=== PATIENT | female | born 1995 | race Caucasian/White ===

== ENCOUNTER 2022-10-12 15:16 | Inpatient (IN) | payer MEDICAID, SELFPAY ==
[2022-10-12] VITALS (15 sets, daily range): BP systolic 116–146; BP diastolic 61–85; PULSE 63–101; RESP 15–20; TEMP 37.1; BMI 30.2
[2022-10-12 16:15] LABS: Glucose Urine UA Norm (Normal); Ketones Urine 1+ (Negative); Protein Urine Neg (Negative); Urine Appearance Hazy (CLEAR); Urine Color Yellow (Yellow); pH Urine 6 (5-7)
[2022-10-12 16:16] LABS: Bacteria Urine 4+ /hpf; Bilirubin Urine Neg (Negative); Blood Urine Neg (Negative); Leukocyte Esterase Urine Negative (Negative); Mucus Urine 1+ /hpf; Nitrate Urine Negative (Negative); RBC Urine 0-4 /hpf (0-2); Squamous Epithelial Cell Urine 0-4 /hpf (0-5); Urobilinogen Urine Norm (Negative); WBC Urine 0-4 /hpf (0-5)
[2022-10-12 16:17] LABS: Add Urine Culture? Yes
[2022-10-12 16:18] LABS: Amphetamines Screen Urine Negative (Negative); Barbiturates Screen Urine Negative (Negative); Benzodiazepines Screen Urine Negative (Negative); Cocaine Screen Urine Negative (Negative); Opiate Screen Urine Negative (Negative); PCP Screen Urine Negative (Negative); THC Screen Urine Negative (Negative)
[2022-10-12 18:24] LABS: Basophils % 0.2 %; Eosinophils % 0.4 %; Hematocrit 37.7 % (37.0-47.0); Hemoglobin 11.9 g/dL (11.5-15.3); Lymphocytes % 19.7 %; Mean Corpuscular HGB Conc 31.6 g/dL (30.0-36.0); Mean Corpuscular Hemoglobin 25.2 pg (28.0-34.0); Mean Corpuscular Volume 79.9 fl (81-99); Mean Platelet Volume 9.6 fL (7.4-10.4); Monocytes # 0.7 10^3/uL (0.2-0.9); Monocytes % 6.6 %; Neutrophils # 7.53 10^3/uL (1.8-7.7); Neutrophils % 72.8 %; Nucleated Red Blood Cells % 0 %; Platelet Count 289 10^3/cmm (130-400); Red Blood Count 4.72 10^6/uL (4.1-5.3); Red Cell Distribution Width 13.9 % (12.1-15.1); White Blood Count 10.3 10^3/uL (4.0-10.0)
[2022-10-12] MEDS: dextrose 5%-lactated ringers 1,000 ML 125 ML IV (18:40)
--- NOTE | 2022-10-12 19:14 | PM.OPHPUD ---
Labor & Delivery H&P Update Date of Procedure: October 12, 2022 Date H&P Performed: 10/11/22 H&P update information: I have reviewed H&P completed within last 30 days, I have examined patient prior to procedure and Changes to prior documentation as noted here Changes to previous documentation: The patient progressed from 2 cm to 5 cm cervical dilation and was admitted in active labor. Admission Diagnosis: iup@ 40w2d Related Problem List Diagnoses (1) Supervision of other normal :
--- NOTE | 2022-10-12 19:16 | PM.DELIVERY ---
Delivery Note: Date of delivery: October 12, 2022 Pre-delivery diagnoses: iup@ 40w3d Post-delivery diagnoses: same-delivered Procedure: Delivering Physician: Moise Estimated blood loss (mL): 20 Findings: term male in the MATTHEW presentation Pre-Delivery Course: iup@ 40w3d who presented in active labor. She had fast cervical dilation and went from 2 cm to 5 cm in 2 hours, then to 8 cm in 30 minutes. Delivery: The patient had complete cervical dilation and began to push. The head delivered in the MATTHEW position over an intact perineum under no anesthesia. The nose and mouth were bulb suctioned. The shoulders and body delivered atraumatically. The baby was placed onto the mother's abdomen. The cord was clamped and cut. The placenta delivered spontaneously. It was inspected and found to be intact. Inspection of the perineum revealed no lacerations and no repair was required. Estimated blood loss 20 mL. Apgars on baby were 8 at 1 minute and 9 at 5 minutes. Weight of baby is 6 pounds 13 ounces. Mother and baby were stable post delivery. History History History 5 Term 4 0 Miscarriages/Ectopic 0 Living Children 4 Coding Level of Care Code Acute Code for Chg Fwd Diagnoses
[2022-10-12] MEDS: ibuprofen 800 mg tablet PO (21:10)
[2022-10-12] MEDS: acetaminophen 325 mg Tablet 650 MG PO (22:41)
[2022-10-13] VITALS (9 sets, daily range): BP systolic 103–121; BP diastolic 64–79; PULSE 63–96; RESP 15–18; TEMP 36.5–36.9; O2SAT 95–99
--- NOTE | 2022-10-13 05:18 | PC.NURSE ---
The hotline call was placed primarily due to the patient not having custody of her 2 oldest children. Patient stated to Carlos Noonan RN and Carol Mcmahon CST while receiving assistance with the certificate packet on 10/13/22 that baby's father was in prison but would be getting out this week . The patient also stated that the father will be involved in the child's care. This is the only other concern that was noted related to the 's safety at home throughout this hospital stay.
[2022-10-13] MEDS: benzocaine-menthol 78 gm Canister 1 SPRAY TOPICAL (06:05)
[2022-10-13] MEDS: HYDROcodone-acetaminophen 5-325 mg Tablet PO ×2 (06:09→15:20)
[2022-10-13 08:59] LABS: Hematocrit 35.9 % (37.0-47.0); Hemoglobin 11.1 g/dL (11.5-15.3); Mean Corpuscular HGB Conc 30.9 g/dL (30.0-36.0); Mean Corpuscular Hemoglobin 25.3 pg (28.0-34.0); Mean Platelet Volume 9.8 fL (7.4-10.4); Platelet Count 233 10^3/cmm (130-400); Red Blood Count 4.38 10^6/uL (4.1-5.3); Red Cell Distribution Width 14.1 % (12.1-15.1)
[2022-10-13] MEDS: docusate sodium 100 mg Capsule PO ×2 (09:17→20:44)
[2022-10-13] MEDS: prenatal vitamin Capsule 1 CAP PO (09:17)
[2022-10-13] MEDS: ibuprofen 800 mg tablet PO ×3 (09:17→20:44)
--- NOTE | 2022-10-13 15:58 | P.PN_ITS ---
Vitals/I&O/Wt Last Vital Signs Temp 98.0 F 10/13/22 08:54 Pulse 96 10/13/22 11:53 Resp 16 10/13/22 06:59 BP 111/64 10/13/22 11:53 Pulse Ox 97 10/13/22 08:54 O2 Del Method Room Air 10/13/22 08:54 Weight last 48 hrs Weight 171 lb Physical Exam Narrative: The patient is doing well today. No concerns. Const: COMMON NORMALS: no acute distress, average body habitus, patient cherelle ented x3, no limitations, healthy appearing, alert and well nourished GENERAL APPEARANCE: cooperative, comfortable, well kempt and well developed ORIENTATION/CONSCIOUSNESS: Yes awake, Yes oriented to person, Yes oriented to place and Yes oriented to time Resp: COMMON NORMALS: normal respiratory effort GI: COMMON NORMALS: Soft to palpation and non-tender PALPATION: Yes Soft to palpation Extremity: COMMON NORMALS: no calf tenderness Neuro: COMMON NORMALS: patient oriented x3 SENSORIUM/ORIENTATION: Yes alert, Yes oriented to person, Yes oriented to place and Yes oriented to time Psych: APPEARANCE: Yes well kempt Data 10/13/22 08:45 Micro: Microbiology 10/12/22 15:45 Urine Culture - Preliminary Urine,Clean Catch Attestations Medical Necessity Statement*: the patient had a vaginal delivery and will be here two midnights. Coding Level of Care Code Acute Code for Chg Fwd Diagnoses
[2022-10-14 05:00] VITALS: BP 120/77; PULSE 76; RESP 16; TEMP 36.7; O2SAT 97
[2022-10-14] MEDS: HYDROcodone-acetaminophen 5-325 mg Tablet PO (05:43)
--- NOTE | 2022-10-14 08:12 | P.DS_ITS ---
Discharge Providers Date of Admission: 10/12/22 15:16 Date of Discharge: October 14, 2022 Attending Provider at Admission: Sherin Phipps MD Attending Provider at Discharge: Sherin Phipps MD Diagnoses at Discharge Discharge Diagnosis (1) Supervision of other normal : Status: Acute Reason for Visit Reason for Visit: contractions Hospital Course Hospital Course The patient was admitted for labor at term. She had spontaneous delivery of a term male . She did well and was ready for discharge on day #2 Physical Exam Narrative: The patient has no concerns today Const: COMMON NORMALS: no acute distress, average body habitus, patient oriented x3, no limitations, healthy appearing, alert and well nourished GENERAL APPEARANCE: cooperative, comfortable, well kempt and well developed ORIENTATION/CONSCIOUSNESS: Yes awake, Yes oriented to person, Yes oriented to place and Yes oriented to time Resp: COMMON NORMALS: normal respiratory effort GI: COMMON NORMALS: Soft to palpation and non-tender PALPATION: Yes Soft to palpation Extremity: COMMON NORMALS: no calf tenderness Neuro: COMMON NORMALS: patient oriented x3 SENSORIUM/ORIENTATION: Yes alert, Yes oriented to person, Yes oriented to place and Yes oriented to time Psych: APPEARANCE: Yes well kempt Discharge Data Studies Completed and Pending Pending at discharge Category Date Time Status Urine Culture Stat Lab 10/12/22 15:45 Results Laboratory Results WBC 9.0 10^3/uL (4.0-10.0) 10/13/22 08:45 RBC 4.38 10^6/uL (4.1-5.3) 10/13/22 08:45 Hgb 11.1 g/dL (11.5-15.3) L 10/13/22 08:45 Hct 35.9 % (37.0-47.0) L 10/13/22 08:45 MCV 82.0 fl (81-99) 10/13/22 08:45 MCH 25.3 pg (28.0-34.0) L 10/13/22 08:45 MCHC 30.9 g/dL (30.0-36.0) 10/13/22 08:45 RDW 14.1 % (12.1-15.1) 10/13/22 08:45 Plt Count 233 10^3/cmm (130-400) 10/13/22 08:45 MPV 9.8 fL (7.4-10.4) 10/13/22 08:45 Neut % (Auto) 72.8 % 10/12/22 18:10 Lymph % (Auto) 19.7 % 10/12/22 18:10 [place] % (Auto) 6.6 % 10/12/22 18:10 Eos % (Auto) 0.4 % 10/12/22 18:10 Baso % (Auto) 0.2 % 10/12/22 18:10 Neut # (Auto) 7.53 10^3/uL (1.8-7.7) 10/12/22 18:10 Lymph # (Auto) 2.0 10^3/uL (0.8-4.8) 10/12/22 18:10 [place] # (Auto) 0.7 10^3/uL (0.2-0.9) 10/12/22 18:10 Eos # (Auto) 0.0 10^3/uL (0.0-0.8) 10/12/22 18:10 Baso # (Auto) 0.0 10^3/uL (0.0-0.1) 10/12/22 18:10 Nucleated RBC % (auto) 0 % 10/12/22 18:10 Nucleated RBCs # 0.0 /100WBC 10/12/22 18:10 Urine Color Yellow (Yellow) 10/12/22 15:45 Urine Appearance Hazy (CLEAR) A 10/12/22 15:45 Urine pH 6 (5-7) 10/12/22 15:45 Ur Specific [place] 1.020 (1.005-1.030) 10/12/22 15:45 Urine Protein Neg (Negative) 10/12/22 15:45 Urine Glucose (UA) Norm (Normal) 10/12/22 15:45 Urine Ketones 1+ (Negative) H 10/12/22 15:45 Urine Blood Neg (Negative) 10/12/22 15:45 Urine Nitrate Negative (Negative) 10/12/22 15:45 Urine Bilirubin Neg (Negative) 10/12/22 15:45 Urine Urobilinogen Norm mg/dL (Negative) 10/12/22 15:45 Ur Leukocyte Esterase Negative (Negative) 10/12/22 15:45 Urine RBC 0-4 /hpf (0-2) H 10/12/22 15:45 Urine WBC 0-4 /hpf (0-5) H 10/12/22 15:45 Ur Squamous Epith Cells 0-4 /hpf (0-5) H 10/12/22 15:45 Amorphous Sediment Not Reportable 10/12/22 15:45 Urine Bacteria 4+ /hpf (NONE) H 10/12/22 15:45 Urine Mucus 1+ /hpf 10/12/22 15:45 Urine Opiates Screen Negative ng/mL (Negative) 10/12/22 15:45 Ur Barbiturates Screen Negative ng/mL (Negative) 10/12/22 15:45 Ur Phencyclidine Scrn Negative ng/mL (Negative) 10/12/22 15:45 Ur Amphetamines Screen Negative ng/mL (Negative) 10/12/22 15:45 U Benzodiazepines Scrn Negative ng/mL (Negative) 10/12/22 15:45 Urine Cocaine Screen Negative ng/mL (Negative) 10/12/22 15:45 U Marijuana (THC) Screen Negative ng/mL (Negative) 10/12/22 15:45 Vitals Last Vital Signs Temp 98.1 F 10/14/22 05:00 Pulse 76 10/14/22 05:00 Resp 16 10/14/22 05:00 BP 120/77 10/14/22 05:00 Pulse Ox 97 10/14/22 05:00 O2 Del Method Room Air 10/14/22 05:00 Discharge Plan Discharge Patient Disposition: Home Condition: Stable Prescriptions: Continued No Known Home Medications Discharge Orders: Discharge Order (Routine); Ordered 10/14/22 Ordered By: Sherin Phipps Patient Instructions: Opioid Safety Discharge Attestations Time Spent in Discharge Care*: less than 30 min Quality Metrics Clinical Quality Measures [ No reported AMI, CVA or VTE this stay] Coding Level of Care Code Acute Code for Chg Fwd Diagnoses Supervision of other normal Z34.80
[2022-10-14] MEDS: ibuprofen 800 mg tablet PO (08:31)
[2022-10-14] MEDS: docusate sodium 100 mg Capsule PO (08:31)
[2022-10-14] MEDS: prenatal vitamin Capsule 1 CAP PO (08:31)
[2022-10-14] MEDS: lanolin oint 7 gm 1 APPLIC TOPICAL (08:37)
[2022-10-14 09:39] VITALS: BP 120/74; PULSE 83; TEMP 36.7; O2SAT 98
[2022-10-14 13:20] VITALS: BP 124/75; PULSE 78; TEMP 36.7; O2SAT 98
== END 2022-10-14 13:20 | disposition home or self-care (01) | DRG 807 ==
LOC: OPOB 15:19 → OBGYN 19:21
PROVIDERS: Obstetrics & Gynecology; Admitting Provider Obstetrics & Gynecology; Visit Provider Obstetrics & Gynecology
DX: O48.0 Post-term pregnancy (principal); Z37.0 Single live birth; Z3A.40 40 weeks gestation of pregnancy
CPT/HCPCS: 36415; 59025; 59409; 80306; 81001; 85025; 85027; 87086; 99211; J7121